=== PATIENT | male | born 1970 | race Caucasian/White ===

== ENCOUNTER → 2020-08-14 | Outpatient (CLI) | payer OTHER ==
[~2020-08-14] MED LIST: LEVOXYL50 MCG; PROZAC40 MG; XANAX 0.25 MG0.25 MG; XANAX 1 MG TABLE1 MG PO
--- NOTE | 2020-08-15 14:27 | TST ---
[place] [address] [employer] STRESS TEST Name: LAMIN DUPREE Room: [facility]#: [id number] Admission: 08/14/20 Attend Phys: Anat Weston DO Discharge: Date of : 66 Date of Service: 08/14/20 1654 Report #: [id number] THIS REPORT FOR: cc: Anat Weston Maggie M. DO Liston, Michael J. MD [facility] ~ CC: Anat Weston DO DATE OF SERVICE: 08/14/2020 PROCEDURE: Standard Edis protocol exercise stress test. INDICATION: Chest pain. DESCRIPTION OF PROCEDURE: After informed consent was obtained, the patient was brought to the cardiac catheterization stress laboratory. The patient underwent standard Edis protocol exercise stress testing with EKG monitoring. CARDIAC RISK FACTORS: Include dyslipidemia and family history of coronary artery disease. He is a former smoker. CARDIAC MEDICATIONS: None. The patient exercised per standard Edis protocol for a total of 6 minutes and 54 seconds. The patient achieved 96% of the age predicted maximum heart rate and an energy expenditure of 8.72 METs. The resting blood pressure was 113/89 mmHg with resting pulse rate of 94 beats per minute. At peak exercise, the blood pressure was 182/77 mmHg with a peak stress heart rate of 162 beats per minute. Recovery blood pressure was 114/70 mmHg with a recovery heart rate of 111 beats per minute. The patient tolerated exercise well and without cardiac complaint. The baseline 12-lead EKG shows sinus rhythm without significant ST segment or T-wave abnormality. EKGs obtained during and post-exercise shows sinus rhythm and sinus tachycardia with no significant ST segment or T-wave changes when compared to baseline. There were no stress-induced arrhythmias. IMPRESSION: 1. Clinical response, nonischemic. 2. EKG response, nonischemic. 3. Normal blood pressure response to exercise. 4. Normal [place] [address] [employer] STRESS TEST Name: LAMIN DUPREE Room: [facility]#: [id number] Admission: 08/14/20 Attend Phys: Anat Weston DO Discharge: Date of : 66 Date of Service: 08/14/201653 Report #: [id number] CONCLUSION: Standard Edis protocol exercise stress test is low risk for underlying hemodynamically significant coronary artery disease. This is a low-risk study. <ELECTRONICALLY SIGNED> By: Dale Mcgill MD, [facility] 08/15/20 1427 165 T: [id number] Dale Mcgill MD, FACC /nt
== END ==
LOC: M.CRD 14:55
PROVIDERS: ATTEND Family Medicine
DX: R07.89 Other chest pain (principal)

== ENCOUNTER → 2021-02-18 | Outpatient (CLI) | payer OTHER | LOC: M.ULTRA 07:58 | PROVIDERS: ATTEND Family Medicine | DX: K76.0 Fatty (change of) liver, not elsewhere classified (principal); R79.89 Other specified abnormal findings of blood chemistry; K80.20 Calculus of gallbladder without cholecystitis without obstruction; I70.0 Atherosclerosis of aorta ==